=== PATIENT | female | born 1975 | race Caucasian/White ===

== ENCOUNTER 2020-05-07 02:51 | Emergency (ER) | payer MEDICARE, MEDICAID, SELFPAY ==
[2020-05-07 03:00] VITALS: BP 116/86; PULSE 95; RESP 18; TEMP 37; O2SAT 97
[2020-05-07] MEDS: FLUORESCEIN SOD 1 MG/STRIP 2 MG (03:18)
[2020-05-07] MEDS: TETRACAINE HCL 0.5% OPHTH SOLN 4 ML BTL 1 DROP (03:18)
--- NOTE | 2020-05-07 03:38 | ED.EYEPROB ---
HPI - Eye Problem General Chief complaint: Eye Problems Stated complaint: eye problem Time Seen by Provider: 05/07/20 03:10 Source: patient Mode of arrival: ambulatory Limitations: no limitations History of Present Illness HPI Narrative: Patient comes in with complaints of red irritated eyes. She was seen at her doctors office 3 days ago and was started on tobramycin drops for what was felt to be a bacterial conjunctivitis. Since she has been using her drops, her eyes have not improved, but have instead gotten more irritated and red. Related Data Home Medications Medication Instructions Recorded Confirmed amoxicillin 875 mg PO BID 05/07/20 05/07/20 aripiprazole 5 mg PO DAILY 05/07/20 05/07/20 atorvastatin 10 mg PO HS 05/07/20 05/07/20 clopidogrel 75 mg PO DAILY 05/07/20 05/07/20 metoprolol succinate 100 mg PO DAILY 05/07/20 05/07/20 tobramycin 1 drp OPHTHALMIC (EYE) DAILY 05/07/20 05/07/20 topiramate 50 mg PO BID 05/07/20 05/07/20 venlafaxine 75 mg PO DAILY 05/07/20 05/07/20 venlafaxine 150 mg PO DAILY 05/07/20 05/07/20 Allergies Allergy/AdvReac Type Severity Reaction Status Date / Time No Known Allergies Allergy Verified 05/07/20 03:05 Review of Systems Review of Systems: ROS unobtainable: Yes unobtainable due to medical condition Constitutional: Constitutional: Reports no additional constitutional complaints Eyes: Eyes: Reports no additional eye complaints ENT: Reports system reviewed and no additional complaints, except as documented Cardiovascular: Cardiovascular: Reports no additional cardiovascular complaints Respiratory: Respiratory: Reports no additional respiratory complaints Gastrointestinal: Gastrointestinal: Reports no additional gastrointestinal complaints Genitourinary: Genitourinary: Reports no additional female genitourinary complaints Musculoskeletal: Musculoskeletal: Reports no additional musculoskeletal complaints Integumentary/Breasts: Skin/Breast: Reports system reviewed and no additional complaints, except as docu Neurologic: Reports system reviewed and no additional complaints, except as documented Psychiatric: Psychiatric: Reports no additional psychiatric complaints Endocrine: Endocrine: Reports no additional endocrine complaints Hematologic/Lymphatic: Hematologic/Lymphatic: Reports no additional hematologic/lymphatic complaints Allergic/Immunologic: Allergic/Immunologic: Reports no additional allergic/immunologic complaints [facility] Past Medical History Medical History (Updated 05/07/20 @ 05:11 by Cesar Nolan MD) CVA (cerebral vascular accident) Surgical History Surgical History (Updated 05/07/20 @ 05:12 by Cesar Nolan MD) No significant past surgical history Family History Family History (Updated 05/07/20 @ 05:13 by Cesar Nolan MD) Father Hypertension Social History Social History (Updated 05/07/20 @ 05:13 by Cesar Nolan MD) Smoking status: Never smoker Alcohol intake: never Substance use: never Substance use type: does not use Living arrangements: with family Gender identity (if verbalized by the patient): Female Sexual Orientation (if Verbalized by the Patient): Straight or Heterosexual Exam Const: General: no acute distress HENMT: Mouth: Yes moist mucous membranes Throat: posterior oropharynx normal Eyes: Other: Both eyes examined with fluorescein. There was uniform minimal uptake. No abrasions, no foreign material noted. Neck: Neck: normal visual inspection Chest: Chest palpation & inspection: normal inspection of the chest Resp: Effort & Inspection: normal respiratory effort Auscultation: clear to auscultation bilaterally Cardio: Rate: regular rate Rhythm: regular rhythm GI: GI Palp: Yes Soft to palpation Skin: General skin exam: normal color Neuro: General: patient oriented x3 and moves all extremities Extrem: General: normal to inspection Psych: Appearance: grossly normal Mental Status: mental
[2020-05-07 03:44] VITALS: BP 120/75; PULSE 87; RESP 18; O2SAT 97
== END 2020-05-07 03:57 | disposition home or self-care (01) ==
PROVIDERS: Emergency Provider Emergency Medicine; PCP Family Medicine
DX: H10.89 Other conjunctivitis (principal)
CPT/HCPCS: 99283